=== PATIENT | male | born 1990 | race African-American/Black ===

== ENCOUNTER 2024-05-20 13:55 | Emergency (ER) ==
[2024-05-21] MEDS ORDERED: NAPROXEN500 MG PO (14:41)
[2024-05-21] MEDS ORDERED: METHOCARBAMOL500 MG PO (14:41)
== END 2024-05-20 14:10 | disposition left against medical advice (07) | DRG 951 ==
LOC: ED 13:55 → LWOBS 14:10
DX: Z53.21 Procedure and treatment not carried out due to patient leaving prior to being seen by health care provider (principal)

== ENCOUNTER 2024-05-21 12:29 | Emergency (ER) | payer SELFPAY ==
[~2024-05-21] VITALS: Ht 175.3 cm; Wt 72.0 kg
[2024-05-21] VITALS (9 sets, daily range): BP systolic 131–152; BP diastolic 90–102
[2024-05-21 13:34] LABS: URINE BILIRUBIN - DIPSTICK Negative (NEGATIVE); URINE BLOOD DIPSTICK Negative (NEGATIVE); URINE GLUCOSE - DIPSTICK Negative (NEGATIVE); URINE KETONE Negative (NEGATIVE); URINE LEUK ESTERASE Negative (NEGATIVE); URINE NITRITE - DIPSTICK Negative (Negative); URINE PROTEIN - DIPSTICK Negative (NEG-TRACE); URINE SPECIFIC GRAVITY 1.025
[2024-05-21 14:22] LABS: URINE COLOR Yellow
[2024-05-21] MEDS ORDERED: KETOROLAC TROMETHAMINE 30 MG/ML SDV IM ONE (14:40)
[2024-05-21] MEDS ORDERED: NAPROXEN500 MG PO (14:41)
[2024-05-21] MEDS ORDERED: METHOCARBAMOL500 MG PO (14:41)
== END 2024-05-21 15:19 | disposition home or self-care (01) | DRG 552 ==
LOC: ED 12:29
PROVIDERS: Nurse Practitioner
DX: M54.50 Low back pain, unspecified (principal)